=== PATIENT | male | born 1965 | race Caucasian/White ===

== ENCOUNTER 2019-09-30 17:54 | Outpatient (CLI) | payer BC | END 2019-09-30 17:55 | disposition home or self-care (01) | LOC: COV 17:54 | PROVIDERS: ATTEND Family Medicine | DX: R05 Cough (principal); J02.9 Acute pharyngitis, unspecified; R19.7 Diarrhea, unspecified | CPT/HCPCS: 81599 ==

== ENCOUNTER 2019-12-24 13:54 | Outpatient (CLI) | payer BC | END 2019-12-24 13:55 | disposition home or self-care (01) | LOC: COV 13:54 | PROVIDERS: ATTEND Family Medicine | DX: R05 Cough (principal); R53.83 Other fatigue; J02.9 Acute pharyngitis, unspecified; R19.7 Diarrhea, unspecified; R09.81 Nasal congestion; Z20.828 Contact with and (suspected) exposure to other viral communicable diseases ==

== ENCOUNTER 2022-10-26 04:05 | Emergency (ER) | payer BC ==
[2022-10-26] MEDS ORDERED: FAMOTIDINE 20 MG/2 ML VIAL IVP STA (04:52)
[2022-10-26] MEDS ORDERED: ONDANSETRON 4 MG/2 ML VIAL IVP STA (04:52)
[2022-10-26] MEDS ORDERED: MORPHINE 2 MG/ML CARPUJECT IVP STA (04:53)
--- NOTE | 2022-10-26 04:55 | ED Physician Documentation ---
History of Present Illness - Stated complaint Stated Complaint: ABD PX - Chief complaint Chief Complaint: Abd Pain - History obtained from History obtained from: Patient - Additonal information Additional information: 48-year-old male with history of high blood pressure And chronic back pain presents with epigastric pain waxing and waning in severity over the past 36 hours. Also with nausea during that time culminating in nonbloody nonbilious vomiting in the emergency department. Denies urinary symptoms, diarrhea, fever or chills.Patient says he had similar symptoms about 10 years ago and was told that he had an autoimmune condition that was causing it. PD PAST MEDICAL HISTORY - Present Medications Home Medications: Ambulatory Orders Medication Instructions Recorded Confirmed Ketorolac [Toradol] 10 mg PO Q6H PRN #20 tablet 10/26/22 Lisinopril [Zestril] 40 mg PO DAILY 10/26/22 10/26/22 hydroCHLOROthiazide [Hydrodiuril] 10/26/22 - Allergies Allergies/Adverse Reactions: Allergies Allergy/AdvReac Type Severity Reaction Status Date / Time No Known Drug Allergies Allergy Verified 10/26/22 04:25 PD ED PE NORMAL - Vitals Vital signs reviewed: Yes - General General: Alert and oriented X 3, No acute distress, Well developed/nourished - HEENT HEENT: Atraumatic, PERRL, EOMI - Neck Neck: Supple, no meningeal sign - Cardiac Cardiac: RRR - Respiratory Respiratory: No respiratory distress, Clear bilaterally - Abdomen Abdomen: Other (Right upper quadrant and epigastrium tender to palpation.) - Derm Derm: Normal color, Warm and dry Results - Vitals Vitals: Vital Signs - 24 hr 10/26/22 10/26/22 04:20 04:22 Temperature 35.3 C L Heart Rate 73 71 Respiratory 19 18 Rate Blood Pressure 161/85 H 154/70 H O2 Saturation 98 99 Oxygen O2 Source Room air - Labs Labs: Laboratory Tests 10/26/22 10/26/22 10/26/22 04:46 04:46 05:02 WBC 9.2 RBC 5.71 Hgb 16.5 Hct 50.4 MCV 88.3 MCH 28.9 MCHC 32.7 RDW 12.4 Plt Count 169 MPV 11.1 Neut # (Auto) 7.2 H Lymph # (Auto) 1.4 L Taylor # (Auto) 0.4 Eos # (Auto) 0.1 Baso # (Auto) 0.0 Absolute Nucleated RBC 0.00 Nucleated RBC % 0.0 Sodium 139 Potassium 3.6 Chloride Not Reportable Carbon Dioxide 29 Anion Gap Not Reportable BUN 24 H Creatinine 1.0 Estimated GFR (MDRD) 76 L Glucose 134 H Calcium 9.6 Total Bilirubin 0.6 AST 23 ALT 20 Alkaline Phosphatase 46 Total Protein 8.3 H Albumin 4.6 Globulin 3.7 Albumin/Globulin Ratio 1.2 Lipase 35 Urine Color YELLOW Urine Clarity CLEAR Urine pH 5.5 Ur Specific [place] >=1.030 H Urine Protein NEGATIVE Urine Glucose (UA) NEGATIVE Urine Ketones NEGATIVE Urine Occult Blood SMALL H Urine Nitrite NEGATIVE Urine Bilirubin NEGATIVE Urine Urobilinogen 0.2 (NORMAL) Ur Leukocyte Esterase NEGATIVE Urine RBC 0-5 Urine WBC 0-3 Ur Squamous Epith Cells RARE Squamous Urine Bacteria Rare Ur Microscopic Review INDICATED Urine Culture Comments NOT INDICATED PD Medical Decision Making - ED course ED course: 48-year-old male presents with abdominal pain, nausea and vomiting. Will obtain CBC, abdominal panel, urinalysis, and provide IV fluids, Zofran, Pepcid, and IV morphine for pain. Plan to reevaluate. pain improved with IV toradol and morphine. d/w patient that he has gallstones. symptomatic care discussed. plan to f/u with surgery clinic. return precautions given. Departure - Departure Disposition: 01 Home, Self Care Clinical Impression: Vomiting, Abdominal pain, Gallstones Condition: Stable Instructions: Gallstones Dc Follow-Up: Isael Fernández MD [Provider Admit Priv/Credential] - Prescriptions: Ketorolac [Toradol] 10 mg PO Q6H PRN #20 tablet PRN Reason: Pain Comments: You were seen in the ED for gallstones. Please follow up with surgery clinic. A prescription for toradol was sent electronically to [facility]. Return to the ED if you develop fever or have any new or worsening symptoms or other concern. Forms: Activity restrictions
[2022-10-26 04:56] LABS: BASOPHILS % (AUTO) 0.1 %; EOSINOPHILS # (AUTO) 0.1 10^3/uL (0.0-0.7); EOSINOPHILS % (AUTO) 1.1 %; HCT - HEMATOCRIT 50.4 % (42.0-52.0); HGB - HEMOGLOBIN 16.5 g/dL (14.0-18.0); LYMPHOCYTES # (AUTO) 1.4 10^3/uL (1.5-3.5); LYMPHOCYTES % (AUTO) 15.7 %; MEAN CORPUSCULAR HEMOGLOBIN 28.9 pg (27.0-31.0); MEAN CORPUSCULAR HGB CONC 32.7 g/dL (32.0-36.0); MEAN CORPUSCULAR VOLUME 88.3 fL (80.0-94.0); MEAN PLATELET VOLUME 11.1 fL (7.4-11.4); MONOCYTES # (AUTO) 0.4 10^3/uL (0.0-1.0); MONOCYTES % (AUTO) 4.8 %; NEUTROPHILS # (AUTO) 7.2 10^3/uL (1.5-6.6); NEUTROPHILS % (AUTO) 78.2 %; PLT - PLATELET COUNT 169 10^3/uL (130-450); RED BLOOD COUNT 5.71 10^6/uL (4.70-6.10); RED CELL DISTRIBUTION WIDTH 12.4 % (12.0-15.0); WHITE BLOOD COUNT 9.2 x10^3/uL (4.8-10.8)
[2022-10-26] MEDS ORDERED: SODIUM CHLORIDE 0.9% 1,000 ML IV STA (04:56)
[2022-10-26 05:08] LABS: BILIRUBIN,URINE NEGATIVE (NEGATIVE); GLUCOSE, URINE (UA) NEGATIVE (NEGATIVE); KETONES,URINE (UA) NEGATIVE (NEGATIVE); LEUKOCYTE ESTERASE, URINE NEGATIVE (NEGATIVE); NITRITE,URINE NEGATIVE (NEGATIVE); OCCULT BLOOD,URINE SMALL (NEGATIVE); PH,URINE 5.5 PH (5.0-7.5); PROTEIN,URINE NEGATIVE (NEGATIVE); UROBILINOGEN,URINE 0.2 (NORMAL) E.U./dL (NORMAL)
[2022-10-26 05:14] LABS: CLARITY,URINE CLEAR (CLEAR)
[2022-10-26 05:15] LABS: BACTERIA,URINE Rare /HPF (None Seen); RBC,URINE 0-5 /HPF (0-5); SQUAMOUS EPITHELIAL CELL,UR RARE Squamous (<= Few); WBC,URINE 0-3 /HPF (0-3)
[2022-10-26 05:17] LABS: ALBUMIN 4.6 g/dL (3.2-5.5); ALBUMIN/GLOBULIN RATIO 1.2 (1.0-2.2); ALKALINE PHOSPHATASE 46 IU/L (42-121); ALT ALANINE AMINOTRANSFERASE 20 IU/L (10-60); AST ASPARTATE AMINOTRANSFERASE 23 IU/L (10-42); BILIRUBIN,TOTAL 0.6 mg/dL (0.2-1.0); BUN - BLOOD UREA NITROGEN 24 mg/dL (6-20); CALCIUM 9.6 mg/dL (8.5-10.3); CARBON DIOXIDE - CO2 29 mmol/L (21-32); GFR - MDRD 76 (>89); GLUCOSE 134 mg/dL (70-100); LIPASE 35 U/L (22-51); POTASSIUM 3.6 mmol/L (3.5-5.0); SODIUM 139 mmol/L (135-145); TOTAL PROTEIN 8.3 g/dL (6.7-8.2)
[2022-10-26] MEDS ORDERED: iohexoL-300 100 ML VIAL ONE (05:41)
[2022-10-26] MEDS ORDERED: iohexoL-300 100 ML VIAL IVP ONE (06:21)
[2022-10-26] MEDS ORDERED: KETOROLAC 15 MG/ML VIAL IVP STA (06:41)
[2022-10-26 07:02] VITALS: BP 154/70
--- NOTE | 2022-10-26 09:30 | CT Report ---
PROCEDURE: ABDOMEN/PELVIS W INDICATIONS: abd pain CONTRAST: Omni 300 100ml TECHNIQUE: After the administration of IV contrast, 5 mm thick sections acquired from the diaphragms to the symp hysis. 5 mm thick coronal and sagittal reformats were acquired. For radiation dose reduction, the f ollowing was used: automated exposure control, adjustment of mA and/or kV according to patient size. COMPARISON: none FINDINGS: Image quality: Excellent. Lung bases and heart: Unremarkable. Liver: Liver is enlarged measuring 21.2 cm with steatosis. Ill-defined low-attenuation focus with het erogeneous enhancement is present in the posterior lateral liver measuring 2.9 x 2.4 cm on series 3 i mage 19. Gallbladder and biliary tree: Luminal stones are present without wall thickening. Spleen: No splenomegaly. Pancreas: No pancreatic ductal dilation. Adrenals: No adrenal nodule. Kidneys and ureters: No hydronephrosis. No renal cystic lesion which requires follow up. No solid mas s. Bowel and peritoneum: No bowel distension. No pathologic free fluid. Lymph nodes: No central or retroperitoneal adenopathy. Vessels: No infrarenal aortic aneurysm. PELVIS Reproductive organs: Unremarkable. Bladder: No abnormal wall thickening, accounting for underdistension. Pelvic lymph nodes: No pelvic adenopathy by size criteria. Bones: No aggressive osseous abnormality. Other: Fat-containing inguinal hernias. IMPRESSION: Cholelithiasis without imaging evidence of cholecystitis. Hepatomegaly with steatosis. Ill-defined partially enhancing mass within the right hepatic lobe. This is suspicious for hemangioma . Nonemergent follow-up with ultrasound may be obtained. Reviewed by: Laurie Cantu MD on 10/26/2022 9:28 AM PDT Approved by: Laurie Cantu MD on 10/26/2022 9:28 AM PDT Station ID: [id number]
[2022-10-26 13:40] LABS: CHLORIDE 100 mmol/L (101-111)
== END 2022-10-26 07:34 | disposition home or self-care (01) ==
LOC: ED 04:05
DX: K80.20 Calculus of gallbladder without cholecystitis without obstruction (principal)
CPT/HCPCS: 36415; 74177; 80053; 81001; 83690; 85025; 96374; 96375; 99284; 99285; Q9967; 81003; 87086